=== PATIENT | female | born 1955 | race Caucasian/White ===

== ENCOUNTER 2022-01-15 12:59 | Emergency (ER) | payer BC, MEDICAID, SELFPAY ==
[2022-01-15 13:00] VITALS: BP 77/68; PULSE 101; RESP 20; TEMP 35.8; O2SAT 96; BMI 34.3
[2022-01-15 13:06] VITALS: BP 137/70; PULSE 75; RESP 16; O2SAT 99
--- NOTE | 2022-01-15 13:17 | EKG12_ITS ---
Test Reason : general illness Blood Pressure : / mmHG Vent. Rate : 073 BPM Atrial Rate : 073 BPM P-R Int : 170 ms QRS Dur : 066 ms QT Int : 422 ms P-R-T Axes : 036 -17 072 degrees QTc Int : 464 ms Normal sinus rhythm Low voltage QRS Inferior infarct , age undetermined Possible Anterolateral infarct , age undetermined Abnormal ECG Confirmed by MIGUEL ANGEL COPE, LESTER ([id number]), publications editor MICHELLE HENSLEY ([id number]) on 01/19/2022 11:24:04 AM Referred By: Confirmed By:LESTER MICHELLE MD
--- NOTE | 2022-01-15 13:25 | EDS_ITS ---
HPI History of Present Illness Chief Complaint: Abd Pain Informant: patient Narrative Narrative: [id number] female with history of diabetes presenting to the emergency department stating she does not feel well. Yesterday evening patient states that she began to not feel well. States she really could not figure out what was causing her to feel that way. She states it continued this morning and she was worried that presents to be her heart. She states that she was outside in the heat over the past several days. She notes that she has a rash on her body and the areas that were out of the sun and she has been scratching it. She denies any vomiting or diarrhea. She denies any. [facility] Medical History (Updated 01/15/22 @ 13:[address] Kb Andrade DO) Diabetes Diabetes mellitus Diabetic neuropathic arthropathy Diabetic neuropathy History of nephrectomy, unilateral HTN (hypertension) Osteomyelitis of foot Home Medications lisinopril 10 mg tablet 5 mg PO DAILY 04/17/13 [History Last Taken Unknown] insulin glargine 100 unit/mL (3 mL) subcutaneous pen (Lantus Solostar U-100 Insulin) 40 units subcut BREAKFAST ##1 04/21/13 [Rx Last Taken 04/16/13 08:00] insulin lispro 100 unit/mL subcutaneous solution (Humalog U-100 Insulin) 10 unit SQ TID ##1 04/21/13 [Rx Last Taken Unknown] L.acid/L.rham/B.lac Bi07/B.lac 06/08/13 [History Last Taken Unknown] amoxicillin 875 mg-potassium clavulanate 125 mg tablet 1 tab PO Q12H 06/08/13 [History Last Taken Unknown] multivitamin with folic acid 400 mcg tablet (Thera) 1 tab PO DAILY 06/08/13 [History Last Taken Unknown] ondansetron 4 mg disintegrating tablet 4 mg PO Q8H PRN PRN Nausea ##10 06/08/13 [Rx Last Taken Unknown] sulfamethoxazole 800 mg-trimethoprim 160 mg tablet 1 tab PO BID ##10 06/08/13 [Rx Last Taken Unknown] Allergy/AdvReac Type Severity Reaction Status Date / Time No Known Allergies Allergy Verified 01/15/22 13:00 Social History (Updated 01/15/22 @ 13:[address] Kb [place], DO) Smoking Status: Never smoker substance use type: does not use ROS ROS ED ROS Narrative Generalized fatigue Constitutional Constitutional ED: Denies chills or weight loss Eyes Eyes: Denies change in vision or diplopia ENT ENT ED: Denies ear pain, rhinorrhea or sore throat Cardiovascular Cardiovascular: Denies chest pain, orthopnea, palpitations or racing heartbeat Respiratory/Chest Respiratory/Chest: Denies cough, dyspnea or orthopnea Gastrointestinal Gastrointestinal: Denies abdominal pain, diarrhea, nausea or vomiting Genitourinary Genitourinary ED: Denies dysuria, hematuria or urinary frequency Musculoskeletal Musculoskeletal: Denies arthralgias or myalgias Integumentary Reports rash; Denies abscess Neurologic Neurologic: Denies headache(s) or weakness Psychiatric Psychiatric: Denies anxiety, depression, suicidal ideation or suicidal thoughts Endocrine Endocrinology: Denies polydipsia, polyphagia or polyuria Allergic/Immunologic Allergic/Immunologic ED: Denies mouth swelling, tongue swelling or urticaria EXAM Physical Exam Const Vital Signs: 01/15/22 13:00 01/15/22 13:06 Temperature 96.5 F L Temperature Source Temporal Pulse Rate 101 H 75 Respiratory Rate 20 H 16 Blood Pressure 77/68 L 137/70 H Blood Pressure Mean 71 92 Pulse Ox 96 99 Oxygen Delivery Method Room Air Room Air Positive well nourished and well developed General Appearance ED: well developed HEENT Reports normocephalic, head/scalp atraumatic and moist mucous membranes Eyes PERRL and EOMs intact bilaterally Neck no lymphadenopathy, supple and no JVD Resp normal respiratory effort and clear to auscultation bilaterally Cardio regular rate, regular rhythm and no murmurs GI normal to inspection, nondistended, normoactive bowel sounds and non-tender Palpation: soft Back/Spine no CVA tenderness and normal ROM Extremity normal to inspection General Extremety ED: Negative for edema General Extremity: Negative for edema Neuro oriented x3 and CN's II-XII intact bilaterally Sensorium / Orientation: alert Motor Exam: strength 5/5 throughout Psych mental status grossly normal Mood & Affect: Negative for depressed or tearful Skin no wounds Skin Narrative: Patient has hives noted on face trunk arms and legs. It is mostly in sun exposed areas but there is some rash and areas that are covered MDM MDM MDM Narrative Medical decision making narrative: White count 10.4 hemoglobin 12.9 platelets of 301. Troponin is normal. Creatinine 1.22 with a BUN of 23. Sodium low at 127. She states that she has been drinking a lot of water because she has been working outside. Patient's EKG is a normal sinus rhythm. Patient received prednisone Pepcid and Benadryl. I will write for her to continue Pepcid Benadryl and prednisone at home. Follow-up with primary care return if worsening or concerns Lab Data Attestation: I reviewed the patient's lab results. Labs: Laboratory Results - last 24 hr 01/15/22 01/15/22 13:40 13:40 WBC 10.4 RBC 4.30 Hgb 12.9 Hct 36.6 L MCV 85.1 MCH 30.0 MCHC 35.2 RDW Std Deviation 39.0 RDW Coeff of Cj 12.7 Plt Count 301 MPV 9.4 Immature Gran % (Auto) 0.300 Neut % (Auto) 82.7 H Lymph % (Auto) 10.3 L Meigs % (Auto) 5.9 Eos % (Auto) 0.6 Baso % (Auto) 0.2 Absolute Neuts (auto) 8.6 H Absolute Lymphs (auto) 1.07 Nucleated RBC % 0 Sodium 127 L Potassium 3.6 Chloride 92 L Carbon Dioxide 23.0 Anion Gap 12 BUN 23 H Creatinine 1.22 H Estim Creat Clear Calc 40.23 Est GFR (MDRD) Af Amer 57 L Est GFR (MDRD) Non-Af 47 L BUN/Creatinine Ratio 18.9 Glucose 181 H Calcium 8.6 Total Bilirubin 0.60 AST 18 ALT 18 Alkaline Phosphatase 87 Troponin I High Sens 14 Total Protein 7.6 Albumin 3.6 Globulin 4.0 Albumin/Globulin Ratio 0.9 EKG Initial EKG: Attestation: I personally reviewed and interpreted this EKG as follows: Comments: Normal sinus rhythm with a ventricular rate of 73 bpm. Discharge Plan Triage Chief Complaint: Abd Pain ED Provider: Kb Andrade Dx/Rx/DC Orders Clinical Impression: Urticaria, Diabetes mellitus, Fatigue Prescriptions: No Action lisinopril 10 MG tablet 5 mg PO DAILY insulin lispro [Humalog U-100 Insulin] 100 UNIT/ML Ml 10 unit SQ TID Qty: 1 0RF Label Comments: SLIDING SCALE FOR DIABETES Rx Instructions: add sliding scale to this; 150-200 add 2; 201-250 4; 251-300 6; 301-350 8 351-400 10 insulin glargine [Lantus Solostar U-100 Insulin] 100 UNITS/ML Pen 40 units subcut BREAKFAST Qty: 1 0RF Label Comments: DIABETES amoxicillin-pot clavulanate 875 MG tablet 1 tab PO Q12H multivitamin with folic acid [Thera] 1 TABLET tablet 1 tab PO DAILY L.acid/L.rham/B.lac Bi07/B.lac ondansetron 4 MG tablet 4 mg PO Q8H PRN PRN (Reason: Nausea) Qty: 10 0RF Rx Instructions: sulfamethoxazole-trimethoprim 1 TABLET tablet 1 tab PO BID Qty: 10 0RF Primary Care Provider: Amos Arredondo Referrals: Amos Arredondo MD [Primary Care Provider] -
[2022-01-15] MEDS: DiphenhydrAMINE 50 MG/ML Syringe 25 MG IV (13:38)
[2022-01-15] MEDS: Famotidine 20 MG Tablet 40 MG PO (13:38)
[2022-01-15] MEDS: predniSONE 20 MG Tablet 40 MG PO (13:38)
[2022-01-15 13:49] LABS: Absolute Lymphocyte Count 1.07 X10^3/uL (0.83-4.51); Absolute Neutrophil Count 8.6 X10^3/uL (2.0-7.7); Basophil# 0.02 X10^3/uL; Basophil% 0.2 % (0-1); Eosinophil# 0.06 X10^3/uL; Eosinophils% 0.6 % (0-5); Hematocrit 36.6 % (37-47); Hemoglobin 12.9 g/dL (12.0-15.0); Lymphocyte # 1.07 X10^3/ul (0.83-4.51); Lymphocyte % 10.3 % (19-41); Mean Corp Hgb Conc 35.2 g/dL (32-36); Mean Corpuscular Volume 85.1 fL (81-99); Mean Platelet Vol. 9.4 fl (6.2-12.0); Monocyte# 0.61 X10^3/uL; Monocyte% 5.9 % (0-10); NRBC Flagged by Analyzer 0 % (0-5); Neutrophil # 8.63 X10^3/uL (2.7-7.7); Neutrophil % 82.7 % (47-70); Platelet Count 301 K/mm3 (150-450); RBC Distribution Width CV 12.7 % (11.6-14.6); White Blood Count 10.4 K/mm3 (4.4-11.0)
[2022-01-15 14:06] LABS: ALB/GLOB Ratio 0.9 RATIO (0.9-2.4); AST(SGOT) 18 U/L (15-37); Alanine Aminotransfer ALT/SGPT 18 U/L (13-56); Albumin, Serum 3.6 g/dL (3.2-5.0); Alkaline Phosphatase 87 U/L (45-117); Anion Gap 12 (5-15); BUN 23 mg/dL (7-18); BUN/Creat Ratio 18.9 RATIO (10-20); Calcium,Total 8.6 mg/dL (8.5-10.1); Chloride 92 mmol/L (98-107); Creatinine, Serum 1.22 mg/dL (0.55-1.02); EST Glomerular Filtration Rate 47 mL/min (>60); Est Glom Filt Rate - Afr Amer 57 mL/min (>60); Estimated Creatinine Clearance 40.23 ml/min; Glucose 181 mg/dL (74-106); Potassium 3.6 mmol/L (3.5-5.1); Protein, Total 7.6 g/dL (6.4-8.2); Sodium Level 127 mmol/L (136-145); Troponin-I HS 14 pg/mL (3.0-54.0)
== END 2022-01-15 14:49 | disposition home or self-care (01) ==
PROVIDERS: Emergency Provider Emergency Medicine; PCP Family Medicine; Visit Provider Emergency Medicine
DX: L50.9 Urticaria, unspecified (principal); E11.9 Type 2 diabetes mellitus without complications; R53.83 Other fatigue
CPT/HCPCS: 80053; 84484; 85025; 93005; 96374; 99283; A4216